=== PATIENT | female | born 1985 | race Caucasian/White ===

== ENCOUNTER 2017-04-06 16:22 | Emergency (ER) | payer BC, MEDICAID ==
[2017-04-06 16:44] VITALS: BP 110/66
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
== END 2017-04-06 18:09 | disposition home or self-care (01) ==
LOC: JP.ED 16:22
DX: S50.12XA Contusion of left forearm, initial encounter (principal); S50.11XA Contusion of right forearm, initial encounter; F17.210 Nicotine dependence, cigarettes, uncomplicated; Z88.1 Allergy status to other antibiotic agents; Z91.040 Latex allergy status; Z98.51 Tubal ligation status; Z90.49 Acquired absence of other specified parts of digestive tract; Y04.2XXA Assault by strike against or bumped into by another person, initial encounter
CPT/HCPCS: 36415; 80074; 80305; 86695; 87449; 99284

== ENCOUNTER 2019-05-06 13:46 | Emergency (ER) | payer SELFPAY ==
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
[2019-05-06] MEDS ORDERED: Sodium Chloride 0.9% 1,000 ML IV SCH (14:45)
[2019-05-06] MEDS ORDERED: HYDROmorphone 0.5 MG/0.5 ML Syringe IVPUSH ONE (15:10)
--- NOTE | 2019-05-06 16:23 | CRLCT ---
INDICATION: Abdominal pain COMPARISON: None available TECHNIQUE: CT examination of the abdomen and pelvis was performed without contrast enhancement using 3 mm thick axial sections from the lung bases through the pubic symphysis. Oral contrast was not administered. Please note that all CT scans at this facility use dose modulation, iterative reconstruction, and/or weight-based dosing when appropriate to reduce radiation dose to as low as reasonably achievable. FINDINGS: There is fluid distributed throughout the nondistended small bowel and colon, consistent with diarrhea. There is no sign of mucosal thickening or wall edema. The findings are consistent with a nonspecific enteritis. In the abdomen, the unenhanced liver, spleen, pancreas, and adrenals are normal in appearance. The unenhanced kidneys are normal in appearance. Clips are seen in the gall bladder fossa from cholecystectomy. The abdominal aorta is normal in caliber with no sign of dilatation. There is no sign of retroperitoneal mass or adenopathy. The stomach, loops of small bowel, and colon in the abdomen are normal in appearance aside from the fluid throughout the talus described above. In the pelvis, the appendix is normal in appearance with no sign of inflammatory process. The loops of small bowel and colon in the pelvis are normal in appearance aside from the fluid throughout the bowel as described above. The uterus and adnexal regions are normal in appearance. The urinary bladder is normal in appearance. There is no sign of pelvic or inguinal mass or adenopathy. The lung bases are clear. The osseous structures are normal in appearance for the patient`s age. IMPRESSION: Moderate amount of fluid distributed throughout the nondistended small bowel and colon, nonspecific. This suggests a nonspecific enteritis. No sign of any mucosal thickening or wall thickening. Otherwise normal CT of the abdomen without contrast status post cholecystectomy. Otherwise normal CT of the pelvis without contrast. Please note that all CT scans at this facility use dose modulation, iterative reconstruction, and/or weight-based dosing when appropriate to reduce radiation dose to as low as reasonably achievable. Dictated by Alli Franco MD @ May 06 2019 4:16PM Signed by Dr. Alli Franco @ May 06 2019 4:21PM
[2019-05-06 17:27] VITALS: BP 111/56
== END 2019-05-06 17:27 | disposition home or self-care (01) ==
LOC: JP.ED 13:46
DX: K52.9 Noninfective gastroenteritis and colitis, unspecified (principal); F17.210 Nicotine dependence, cigarettes, uncomplicated; Z91.040 Latex allergy status; Z90.49 Acquired absence of other specified parts of digestive tract; Z98.51 Tubal ligation status
CPT/HCPCS: 36415; 74176; 80053; 80305; 81001; 82150; 83690; 85025; 87086; 96361; 96374; 99284; J1170; J7030

== ENCOUNTER 2020-12-19 19:19 | Emergency (ER) | payer MEDICAID ==
[2020-12-19] MEDS ORDERED: Ketorolac 30 MG/ML SDV IM ONE (19:24)
[2020-12-19] MEDS ORDERED: Methocarbamol 500 MG Tab PO ONE (19:24)
[2020-12-19] MEDS ORDERED: predniSONE 20 MG Tab PO STA (19:24)
[2020-12-19 19:33] VITALS: BP 114/73; PULSE 104
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
--- NOTE | 2020-12-19 20:44 | CRLCT ---
INDICATION: Acute lumbar pain. Saddle anesthesia. COMPARISON: None available TECHNIQUE: CT examination of the lumbar spine is performed with spiral technique without contrast. 3 mm thick axial, sagittal and coronal reconstructions were made. Please note that all CT scans at this facility use dose modulation, iterative reconstruction, and/or weight-based dosing when appropriate to reduce radiation dose to as low as reasonably achievable. FINDINGS: : The vertebral bodies are normal in height and they are in anatomic alignment. There is no sign of fracture or subluxation. T12-L1: Normal. L1-2: Normal. L2-3: Normal. L3-4: Normal disc centrally with no sign of spinal stenosis. There is mild bilateral lateral disc bulging into the neural foramina without contact with the exiting nerve roots. L4-5: Normal disc with no sign of disc bulge or herniation. No spinal stenosis. Incidental note is made of failure fusion of the anterior superior limits ossification center of the L5 vertebral body, a finding of no clinical significance. There is mild bilateral lateral disc bulging into the neural foramina without contact with the exiting nerve roots. There is mild right facet arthropathy. The left facet is normal in appearance. L5-S1: Mild diffuse disc bulge in without spinal stenosis or impingement upon the exiting nerve roots. Mild left lateral disc bulging into the neural foramen without contact with the exiting nerve root. Normal right neural foramen. Intervertebral discs are normal in height. The visualized abdominal viscera is normal in appearance. There are surgical clips in the right upper quadrant from cholecystectomy. IMPRESSION: No sign of spinal stenosis or nerve root impingement. Nothing seen which would explain the patient`s acute lumbar pain or saddle anesthesia. Minimal degenerative changes as described above. Please note that all CT scans at this facility use dose modulation, iterative reconstruction, and/or weight-based dosing when appropriate to reduce radiation dose to as low as reasonably achievable. Dictated by Alli Franco MD @ Dec 19 2020 8:38PM Signed by Dr. Alli Franco @ Dec 19 2020 8:44PM
== END 2020-12-19 21:34 | disposition home or self-care (01) ==
LOC: JP.ED 19:19
DX: M54.41 Lumbago with sciatica, right side (principal); R20.2 Paresthesia of skin; Z91.040 Latex allergy status; Z88.1 Allergy status to other antibiotic agents; Z88.5 Allergy status to narcotic agent; Z72.0 Tobacco use
CPT/HCPCS: 72131; 96372; 99284; A9270; J1885; J7512; 99283

== ENCOUNTER 2022-11-30 01:30 | Emergency (ER) | payer MEDICAID ==
[2022-11-30 02:57] VITALS: BP 108/58; PULSE 75
== END 2022-11-30 03:44 | disposition home or self-care (01) ==
LOC: JP.ED 01:30
DX: S39.012A Strain of muscle, fascia and tendon of lower back, initial encounter (principal); S39.011A Strain of muscle, fascia and tendon of abdomen, initial encounter; N30.01 Acute cystitis with hematuria; F15.90 Other stimulant use, unspecified, uncomplicated; F17.210 Nicotine dependence, cigarettes, uncomplicated; Z91.040 Latex allergy status; Z88.1 Allergy status to other antibiotic agents; Z88.8 Allergy status to other drugs, medicaments and biological substances
CPT/HCPCS: 36415; 80048; 80305-QW; 81001; 82550; 83735; 85025; 99283; 99284

== ENCOUNTER 2024-05-07 14:59 | Emergency (ER) | payer MEDICAID ==
[2024-05-07 16:13] VITALS: BP 117/65; PULSE 99
== END 2024-05-07 17:09 | disposition home or self-care (01) ==
LOC: JP.ED 14:59
DX: L24.7 Irritant contact dermatitis due to plants, except food (principal); Z87.891 Personal history of nicotine dependence; Z90.49 Acquired absence of other specified parts of digestive tract; Z90.710 Acquired absence of both cervix and uterus; Z91.040 Latex allergy status; Z88.1 Allergy status to other antibiotic agents; Z88.6 Allergy status to analgesic agent
CPT/HCPCS: 99283

== ENCOUNTER 2024-06-05 07:25 | Emergency (ER) | payer MEDICAID ==
[2024-06-05 07:43] VITALS: BP 100/56; PULSE 73
== END 2024-06-05 08:26 | disposition home or self-care (01) ==
LOC: JP.ED 07:25
DX: L23.9 Allergic contact dermatitis, unspecified cause (principal); Z88.1 Allergy status to other antibiotic agents; Z91.040 Latex allergy status; Z88.6 Allergy status to analgesic agent; Z90.710 Acquired absence of both cervix and uterus; Z87.891 Personal history of nicotine dependence
CPT/HCPCS: 99282

== ENCOUNTER 2025-03-20 09:22 | Emergency (ER) | payer SELFPAY ==
[2025-03-20 09:50] VITALS: BP 111/71; PULSE 79
== END 2025-03-20 11:27 | disposition home or self-care (01) ==
LOC: JP.ED 09:22
DX: K02.9 Dental caries, unspecified (principal); Z87.891 Personal history of nicotine dependence; Z91.040 Latex allergy status; Z88.1 Allergy status to other antibiotic agents; Z88.8 Allergy status to other drugs, medicaments and biological substances; Z90.49 Acquired absence of other specified parts of digestive tract; Z90.710 Acquired absence of both cervix and uterus
CPT/HCPCS: 99283

== ENCOUNTER 2025-09-08 19:10 | Emergency (ER) | payer SELFPAY ==
[2025-09-08 19:44] VITALS: BP 105/57; PULSE 94
== END 2025-09-08 20:22 | disposition home or self-care (01) ==
LOC: JP.ED 19:10
DX: K04.7 Periapical abscess without sinus (principal); Z88.1 Allergy status to other antibiotic agents; Z91.040 Latex allergy status; Z88.8 Allergy status to other drugs, medicaments and biological substances; Z90.49 Acquired absence of other specified parts of digestive tract; Z90.710 Acquired absence of both cervix and uterus
CPT/HCPCS: 99282

== ENCOUNTER 2025-11-14 19:23 | Emergency (ER) | payer SELFPAY ==
[2025-11-14 19:56] VITALS: BP 112/76; PULSE 123
[2025-11-14 20:14] LABS: CORONAVIRUS COVID-19 NAA NEGATIVE (NEGATIVE); INFLUENZA A NAA POSITIVE (NEGATIVE); INFLUENZA B NAA NEGATIVE (NEGATIVE); RESPIRATORY SYNCYTIAL VIR NAA NEGATIVE (NEGATIVE)
== END 2025-11-14 21:03 | disposition home or self-care (01) ==
LOC: JP.ED 19:23
DX: J10.1 Influenza due to other identified influenza virus with other respiratory manifestations (principal); Z88.1 Allergy status to other antibiotic agents; Z88.6 Allergy status to analgesic agent; Z90.49 Acquired absence of other specified parts of digestive tract; Z91.040 Latex allergy status; Z90.710 Acquired absence of both cervix and uterus
CPT/HCPCS: 87637; 99284